=== PATIENT | female | born 1965 | race Caucasian/White ===

== ENCOUNTER 2016-09-16 07:33 | Day surgery (SDC) | payer BC ==
[~2016-09-16] VITALS: Ht 167.6 cm; Wt 99.7 kg
[2016-09-16 08:08] VITALS: Ht 167.6 cm; Wt 99.7 kg
[2016-09-16] MEDS ORDERED: PROPOFOL 40 ML ONE (08:11)
[2016-09-16] MEDS ORDERED: OXYC5CAP17 PO (08:19)
[2016-09-16] MEDS ORDERED: LOSA25TA5 PO (08:19)
[2016-09-16] MEDS ORDERED: ATOR40TA68 PO (08:19)
[2016-09-16] MEDS ORDERED: AMLO2.5T78 PO (08:19)
[2016-09-16] MEDS ORDERED: NALO12.5 PO (08:19)
[2016-09-16] MEDS ORDERED: PANT40TA4 PO (08:19)
[2016-09-16 08:41] VITALS: BP 104/64; PULSE 80; RESP 14
[2016-09-16] MEDS ORDERED: EPHEDrine SULFATE 50 MG/5 ML SYG ONE (08:49)
[2016-09-16] MEDS ORDERED: PHENYLephrine (100 MCG/ML) 5ML SYG ONE (08:49)
[2016-09-16 09:25] VITALS: BP 98/56; RESP 20
--- NOTE | 2016-10-14 08:22 | GILP ---
DATE OF PROCEDURE: 10/03/2016 PROCEDURE: 1. Esophagogastroduodenoscopy and biopsy. 2. Flexible sigmoidoscopy. SURGEON: Lou Larsen MD PREOP DIAGNOSES: 1. Dysphagia. 2. Change in bowel habits. 3. Iron deficiency anemia. POSTOP DIAGNOSES: 1. Gastritis with erosions. 2. Gastric mucosal biopsies were taken for H pylori. 3. Poor prep making the exam incomplete and inaccurate. INDICATION: Miss Jamee Campbell is a 51-year-old female patient who had dysphagia. The patient also had a change in the bowel habits. She was noted to have iron deficiency anemia. The patient was scheduled for endoscopy and colonoscopy for further evaluation. The procedures and possible complications were well explained to the patient. The patient understood and consented to the procedure. DESCRIPTION OF PROCEDURE: The gastroscope was carefully introduced into the esophagus under direct vision. It was advanced to the stomach into the pylorus, into the duodenal bulb and descending duodenum. Findings esophagus: The mucosa was normal. There was no evidence of stricture or neoplasm. Stomach: The patient had gastritis with erosions. Gastric mucosal biopsies were taken for H. pylori test. The duodenum was normal. The colonoscope was carefully introduced into the rectum and was advanced to the sigmoid colon. Patient had poor prep with solid stool preventing complete colonoscopy. The patient tolerated the procedure very well. There was no complication from the procedures. At the end of the procedure she was awake with stable vital signs and she was discharged home to the care of her family. IMPRESSION: Please see postoperative diagnoses. PLAN: 1. Nexium 24 hours p.o. q.a.m. 2. The patient will need a repeat colonoscopy with better preparation. Dictated By: MD YOAV Santiago/[email or web address] /Document#: [id number]
== END 2016-09-16 11:09 | disposition home or self-care (01) ==
LOC: GIL 07:33
PROVIDERS: ATTEND Internal Medicine Gastroenterology
DX: R19.4 Change in bowel habit (principal); K29.60 Other gastritis without bleeding; I10 Essential (primary) hypertension; E78.5 Hyperlipidemia, unspecified
CPT/HCPCS: 43239; 45330; 87081; J2370; Z7610